=== PATIENT | female | born 1980 | race Caucasian/White ===

== ENCOUNTER 2017-09-18 12:55 | Inpatient (IN) | payer OTHER ==
[~2017-09-18] VITALS: Ht 160 cm; Wt 45.8 kg
[2017-09-18 14:15] VITALS: BP 115/75
[2017-09-18] MEDS ORDERED: BUSPIRONE15 MG PO (14:16)
[2017-09-18] MEDS ORDERED: 'XANAX0.5 MG PO (14:17)
[2017-09-18] MEDS ORDERED: CITALOPRAM20 MG PO (14:18)
[2017-09-18 15:54] LABS: HEMATOCRIT 33.5 % (37.0-47.0); HEMOGLOBIN 11.1 g/dl (12.0-16.0); MEAN CELL VOLUME 92.8 fl (81.0-99.0); MEAN CORPUSCULAR HGB 30.7 pg (27.0-31.0); MEAN CORPUSCULAR HGB CONC 33.1 g/dl (33.0-37.0); MEAN PLATELET VOLUME 9.6 fl (9.6-12.3); PLATELET COUNT AUTOMATED 204 10*3/uL (130-400); RED BLOOD COUNT 3.61 10*6/uL (4.10-5.10); RED CELL DISTRI WIDTH 17.8 % (0-14.5); WHITE BLOOD COUNT 6.7 10*3/uL (4.8-10.8)
[2017-09-18 16:00] VITALS: BP 115/60
[2017-09-18 16:02] LABS: INTERNATIONAL NORM RATIO 1.1 (2.0-3.5)
[2017-09-18 16:07] LABS: BILIRUBIN NEGATIVE (NEGATIVE); BLOOD NEGATIVE (NEGATIVE); CLARITY CLEAR (CLEAR); COLOR YELLOW (YELLOW); GLUCOSE NEGATIVE (NEGATIVE); KETONE NEGATIVE (NEGATIVE); LEUKO ESTERASE NEGATIVE (NEGATIVE); NITRITE NEGATIVE (NEGATIVE); PH 5.5 (5.0-9.0); SPECIFIC GRAVITY <= 1.005 (1.005-1.030); UROBILINOGEN 0.2 E.U./dl (0.2-1.0)
[2017-09-18 16:15] LABS: URINE AMPHETAMINES < 1000 (1000ng/ml); URINE BARBITURATES < 200 (200ng/ml); URINE BENZODIAZEPINES > 200 (200ng/ml); URINE CANNABINOIDS (THC) > 50 (50ng/ml); URINE COCAINE < 300 (300ng/ml); URINE METHADONE < 300 (300ng/ml); URINE OPIATES < 300 (300ng/ml); URINE PHENCYCLIDINE < 25 (25ng/ml)
[2017-09-18 16:17] LABS: BACTERIA 2+; RBC 0-2 rbc/hpf (0-2)
[2017-09-18 16:18] LABS: ALBUMIN 3.5 gm/dl (3.1-4.5); ALKALINE PHOSPHATASE 114 U/L (45-117); BUN 5 mg/dl (7-24); CHLORIDE 101 mmol/L (98-107); CREATININE 0.52 mg/dL (0.55-1.02); POTASSIUM 3.2 mmol/L (3.5-5.1); SGOT/AST 58 IU/L (3-35); SGPT/ALT 40 U/L (12-78); SODIUM 139 mmol/L (136-145); TOTAL PROTEIN 7.6 gm/dL (6.4-8.2)
[2017-09-18 16:21] LABS: BETA-HCG, QUANT < 1.0 mIU/mL (1-3)
[2017-09-18 16:27] LABS: ATYPICAL LYMPHS 5 % (0-0); BASOPHILS 3 % (0-1); TOTAL CELLS COUNTED 100 #CELLS
[2017-09-18 16:28] LABS: PLATELET SUFFICIENCY NORMAL (NORMAL); POLYCHROMASIA SLIGHT
[2017-09-18 20:00] VITALS: BP 117/70
[2017-09-19] VITALS: BP 103/71
[2017-09-19 04:00] VITALS: BP 115/77
[2017-09-19 08:00] VITALS: BP 100/58
[2017-09-19 12:00] VITALS: BP 94/62
[2017-09-19 16:00] VITALS: BP 102/62
[2017-09-19 20:00] VITALS: BP 107/73
[2017-09-20] VITALS: BP 106/71
[2017-09-20 08:00] VITALS: BP 111/60
[2017-09-20 13:00] VITALS: BP 96/56
[2017-09-20 16:00] VITALS: BP 149/80
[2017-09-20 20:00] VITALS: BP 95/79
[2017-09-21] VITALS: BP 108/66
[2017-09-21 06:27] LABS: HEMATOCRIT 30.1 % (37.0-47.0); HEMOGLOBIN 9.8 g/dl (12.0-16.0); MEAN CELL VOLUME 94.1 fl (81.0-99.0); MEAN CORPUSCULAR HGB 30.6 pg (27.0-31.0); MEAN CORPUSCULAR HGB CONC 32.6 g/dl (33.0-37.0); MEAN PLATELET VOLUME 10.9 fl (9.6-12.3); PLATELET COUNT AUTOMATED 180 10*3/uL (130-400); RED CELL DISTRI WIDTH 18.4 % (0-14.5); WHITE BLOOD COUNT 4.7 10*3/uL (4.8-10.8)
[2017-09-21 06:47] LABS: CREATININE 0.53 mg/dL (0.55-1.02)
[2017-09-21 06:59] LABS: BASOPHILS 2 % (0-1); PLATELET SUFFICIENCY NORMAL (NORMAL); TOTAL CELLS COUNTED 100 #CELLS
[2017-09-21 08:00] VITALS: BP 102/64
[2017-09-21] MEDS ORDERED: ATARAX,VISTARIL50 MG PO (11:34)
[2017-09-21] MEDS ORDERED: ZOFRAN 4 MG ED2 TAB PO (11:34)
== END 2017-09-21 12:19 | disposition home or self-care (01) | DRG 897 ==
LOC: 5E 12:55
PROVIDERS: Emergency Medicine; Internal Medicine
DX: F10.230 Alcohol dependence with withdrawal, uncomplicated (principal); F33.9 Major depressive disorder, recurrent, unspecified; E87.6 Hypokalemia; D64.9 Anemia, unspecified; F41.1 Generalized anxiety disorder; F17.210 Nicotine dependence, cigarettes, uncomplicated; F12.10 Cannabis abuse, uncomplicated; R74.0 Nonspecific elevation of levels of transaminase and lactic acid dehydrogenase [LDH]; Z71.6 Tobacco abuse counseling; Z90.89 Acquired absence of other organs; Z83.3 Family history of diabetes mellitus; Z79.899 Other long term (current) drug therapy